=== PATIENT | male | born 1965 | race Caucasian/White ===

== ENCOUNTER 2016-07-04 09:35 | Observation (INO) | payer SELFPAY ==
[2016-07-04 09:51] VITALS: BMI 36.5
[2016-07-04 10:19] LABS: AUTOMATED BASOPHIL 0.7 % (0-2); AUTOMATED EOSINOPHIL 4.1 % (0-5); AUTOMATED LYMPH 19.1 % (17-44); AUTOMATED MONOCYTE 7.4 % (3-10); AUTOMATED NEUTROPHIL 68.7 % (45-76); MPV 8.8 fL (7.4-10.4)
[2016-07-04 10:27] LABS: ALL NEG? YES; MDMA* NEG (NEGATIVE); METHAMPHETAMINES NEG (NEGATIVE); OXYCODONE NEG (NEGATIVE)
[2016-07-04 10:31] LABS: LEUKOCYTES/URINE NEG (NEGATIVE); NITRITE/URINE NEG (NEGATIVE); RBC/URINE 0-2 (0-2); URINE OCCULT BLOOD NEG (NEG/TRACE); WBC/URINE 0-2 (0-2)
[2016-07-04 10:37] LABS: BLOOD UREA NITROGEN 8 MG/DL (9-20); CALCIUM 9.1 MG/DL (8.4-10.2); CALCULATED OSMOLALITY 273 MOs/Kg (270-290); CHLORIDE 103 mEq/L (98-107); ETOH-MGDL < 10 mg/dL; GLUCOSE 133 MG/DL (70-99); SODIUM LEVEL 142 mEq/L (137-146); TOTAL PROTEIN 7.8 G/DL (6.3-8.2)
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
[2016-07-04] MEDS ORDERED: LORAZEPAM 1 MG TAB PO PRN (10:56)
[2016-07-04] MEDS ORDERED: TEMAZEPAM 15 MG CAP PO PRN (10:56)
[2016-07-04] MEDS ORDERED: MAGNESIUM HYDROXIDE 30 ML BOTTLE PO PRN (10:56)
[2016-07-04] MEDS ORDERED: Docusate Sodium 100 MG CAP PO PRN (10:56)
[2016-07-04] MEDS ORDERED: ACETAMINOPHEN 325 MG/TAB TABLET PO PRN (10:56)
[2016-07-04] MEDS ORDERED: GUAIFENESIN 200 MG/10 ML UDC PO PRN (10:56)
[2016-07-04] MEDS ORDERED: ONDANSETRON HCL 4 MG ODT TAB PO PRN (10:56)
[2016-07-04 11:37] VITALS: TEMP 98.3
[2016-07-04 20:20] VITALS: BP 152/91; PULSE 72
== END 2016-07-04 18:00 | disposition psychiatric hospital, planned readmission (93) ==
LOC: ED 09:35 → EDINP 10:56 → TUOBSINP 11:17
PROVIDERS: ADMIT Emergency Medicine; ATTEND Emergency Medicine
DX: R45.851 Suicidal ideations (principal); F17.210 Nicotine dependence, cigarettes, uncomplicated
CPT/HCPCS: 36415; 80053; 80307; 80320; 81001; 85025; 86592; 99284; G0378